=== PATIENT | female | born 1955 | race Caucasian/White ===

== ENCOUNTER 2024-11-19 18:44 | Emergency (ER) | payer OTHER ==
--- NOTE | 2024-11-19 20:23 | RAD REPORT ---
EXAM: Chest Single View HISTORY: COUGH COMPARISON: None. FINDINGS: LUNGS/PLEURA: Likely emphysema. Linear scarring at the right lung base. Interstitial thickening but w ithout focal consolidation or edema. MEDIASTINUM: The mediastinal silhouette is within normal limits. CARDIAC: The cardiac silhouette is within normal limits. UPPER ABDOMEN: No significant abnormality. BONES: No acute abnormality. LINES/TUBES/OTHER: N/A IMPRESSION: No evidence of acute cardiopulmonary disease.
[2024-11-19 21:00] LABS: Absolute Monocytes 1.4 K/uL (0.1-1.3); Absolute Neutrophil 13.8 K/uL (1.8-8.0); Basophils % 0.3 % (0-1.3); Eosinophils % 0.1 % (0-4.4); Hemoglobin 12.2 g/dL (12.0-15.0); Lymphocytes % 6.2 % (15.3-44.8); MCH 33.4 pg (27.0-35.0); MCV 98.3 fL (80-100); MPV 9.4 fL (7.6-11.3); Monocytes % 8.7 % (3.3-12.3); Neutrophils % 84.7 % (41.7-73.7); Platelets 431 thou/uL (152-406); RBC Red Blood Cell Count 3.66 M/uL (3.86-4.86); Red Cell Distribution Width 14.4 % (12.1-15.2)
[2024-11-19 21:10] LABS: Albumin 2.7 g/dL (3.4-5.0); Albumin/Globulin Ratio 0.6 (1.1-1.8); Anion Gap 8.2 mEq/L (5.0-15.0); Bilirubin Total 1.4 mg/dL (0.2-1.0); Globulin 4.3 g/dL (2.3-3.5); Potassium 3.2 mEq/L (3.5-5.1)
--- NOTE | 2024-11-19 21:51 | RAD REPORT ---
EXAMINATION: CT ABDOMEN AND PELVIS WITH CONTRAST CLINICAL INDICATION: Female, 69 years old.ABD PAIN TECHNIQUE: CT abdomen and pelvis was performed, after the administration of IV contrast, as per [facility] protocol. Axial, sagittal and coronal reconstructions were obtained. One or more of the following dose reduction techniques were used: Automated exposure control, adjustment of the mA and/o r kV according to patient size, and/or iterative reconstruction. Unless otherwise specified, incidental findings do not require dedicated imaging follow-up. [id number]. COMPARISON: No prior exam. FINDINGS: LOWER CHEST: Micronodularity in the right lower lobe.No significant pericardial effusion. Mild circum ferential thickening of the distal esophagus which could reflect esophagitis. UPPER GI: Gastric stimulator leads. LIVER: Hepatic steatosis, but otherwise unremarkable. GALLBLADDER/BILE DUCTS: Extrahepatic biliary duct dilatation?with duct measuring 8 mm. There is also mild ductal enhancement. PANCREAS: Atrophy, but otherwise unremarkable. SPLEEN: Unremarkable. ADRENALS: No adrenal masses. KIDNEYS AND URETERS: No hydronephrosis.No suspicious renal mass. Nonobstructing stone in the lower po le right kidney. ABDOMINAL AORTA AND OTHER VESSELS: Moderate atherosclerotic changes without aortic aneurysm. PERITONEUM: Trace pelvic free fluid. LYMPH NODES: No pathologic lymphadenopathy. ABDOMINAL WALL: Unremarkable SMALL BOWEL/COLON: Small bowel has normal course and caliber. No colonic wall thickening or pericolon ic inflammatory changes. URINARY BLADDER: Underdistended but grossly unremarkable. REPRODUCTIVE ORGANS: No pathologic process. MUSCULOSKELETAL: No acute or suspicious osseous abnormality. ADDITIONAL FINDINGS: None. IMPRESSION: 1. Extra hepatic biliary duct dilatation with mild ductal enhancement. Correlate with LFTs. If abnorm al, could consider further evaluation with MRCP to exclude choledocholithiasis. 2. Mild micronodularity in the right lower lobe likely reflecting mild infection.
[2024-11-19] MEDS ORDERED: ONDANSETRON 4 MG/2 ML VIAL ONE (22:02)
[2024-11-19] MEDS ORDERED: NA CHLORIDE 0.9% 1,000 ML ONE (22:02)
[2024-11-19] MEDS ORDERED: METHYLPREDNISOLONE 125 MG INJ ONE (22:02)
[2024-11-19 23:13] LABS: SARS-CoV-2 Antigen CONTROL BLUE LINE VIS/BG OK; SARS-CoV-2 Antigen Rapid Res Negative (Negative)
[2024-11-19 23:57] LABS: Specific Gravity > 1.030 (1.005-1.030); Sqamous Epithelial <5 /HPF (None Seen); Urine Bacteria None Seen /HPF (<20); Urine Bilirubin NEGATIVE (Negative); Urine Blood Negative (Negative); Urine Clarity Clear (Clear); Urine Color Yellow (Yellow); Urine Culture Reflex Order NOT NEEDED; Urine Glucose NEGATIVE (Negative); Urine Ketones 1+ (Negative); Urine Microscopic Reflex YN ORDER UMIC; Urine Nitrite NEGATIVE (Negative); Urine Protein 1+ (Negative); Urine RBC <5 /HPF (None Seen); Urine Urobilinogen 2+ (Normal); Urine WBC <5 /HPF (<5); Urine pH 6.5 (5.0-7.0)
--- NOTE | 2024-11-20 00:48 | ER ---
Nurse's Notes [facility] Name: Iqra Dhaliwal Age: 69 yrs Sex: Female : 1955 Arrival Date: 11/19/2024 Time: 18:44 Bed 20 Private MD: Diagnosis: Calculus of gallbladder without cholecystitis with obstruction;Acute choledocholithiasis with acute transaminitis Presentation: 11/19 19:07 Chief complaint: Productive cough with brown sputum, palpitations and generalized hb weakness x 1 week. 19:08 Coronavirus screen: At this time, the client does not indicate any symptoms associated hb with coronavirus-19. Ebola Screen: No symptoms or risks identified at this time. Initial Sepsis Screen: Does the patient meet any 2 criteria? No. Patient's initial sepsis screen is negative. Does the patient have a suspected source of infection? No. Patient's initial sepsis screen is negative. Risk Assessment: Do you want to hurt yourself or someone else? Patient reports no desire to harm self or others. Onset of symptoms was November 05, 2023. 19:08 Method Of Arrival: Wheelchair hb 19:08 Acuity: RASHI 3 hb Historical: - Allergies: 19:08 No Known Allergies; hb - PMHx: 19:08 Gastroparesis; Hypertension; hb - Immunization history:: Adult Immunizations up to date. - Infectious Disease History:: Denies. - Social history:: Smoking status: Patient reports the use of cigarette tobacco products, smokes one pack cigarettes per day. Screenin:30 [facility] ED Fall Risk Assessment (Adult) History of falling in the last 3 months, kj2 including since admission No falls in past 3 months (0 pts) Confusion or Disorientation No (0 pts) Intoxicated or Sedated No (0 pts) Impaired Gait No (0 pts) Mobility Assist Device Used No (0 pt) Altered Elimination No (0 pt) Score/Fall Risk Level 0 - 2 = Low Risk Maintained a safe environment, Hourly rounding (assess needs \T\ fall precautionary measures) done. Abuse screen: Denies threats or abuse. Denies injuries from another. Nutritional screening: No deficits noted. Tuberculosis screening: No symptoms or risk factors identified. Assessment: 21:30 General: Appears in no apparent distress. Behavior is calm, cooperative. Pain: Denies kj2 pain. 21:30 Neuro: Level of Consciousness is awake, alert, obeys commands, Oriented to person, kj2 place, time, situation. Cardiovascular: Patient's skin is warm and dry. Respiratory: Airway Respiratory effort is unlabored. GI: Abdomen is. : No signs and/or symptoms were reported regarding the genitourinary system. 22:33 Reassessment: Patient appears in no apparent distress at this time. Patient and/or kj2 family updated on plan of care and expected duration. Pain level reassessed. Patient is alert, oriented x 3, equal unlabored respirations, skin warm/dry/pink. 23:40 Reassessment: Patient appears in no apparent distress at this time. Patient and/or kj2 family updated on plan of care and expected duration. Pain level reassessed. Patient is alert, oriented x 3, equal unlabored respirations, skin warm/dry/pink. 11/20 01:30 Reassessment: No changes from previously documented assessment. Patient and/or family rg5 updated on plan of care and expected duration. Pain level reassessed. Patient is alert, oriented x 3, equal unlabored respirations, skin warm/dry/pink. 02:15 Reassessment: No changes from previously documented assessment. Patient and/or family rg5 updated on plan of care and expected duration. Pain level reassessed. 03:30 Reassessment: No changes from previously documented assessment. Patient and/or family rg5 updated on plan of care and expected duration. Pain level reassessed. Patient is alert, oriented x 3, equal unlabored respirations, skin warm/dry/pink. Vital Signs: 11/19 19:07 BP 112 / 84; Pulse 88; Resp 18; Temp 98.4; Pulse Ox 93% on R/A; Weight 77.11 kg; Height hb 5 ft. 4 in. ; Pain 0/10; 22:37 BP 129 / 94; Pulse 78; Resp 20; Pulse Ox 100% ; kj2 23:41 BP 114 / 86; Pulse 85; Resp 20; Pulse Ox 97% on R/A; kj2 11/20 02:00 BP 128 / 86; Pulse 81; Resp 18; Pulse Ox 96% on R/A; rg5 03:00 BP 123 / 83; Pulse 95; Resp 18; Pulse Ox 94% on R/A; rg5 11/19 19:07 Body Mass Index 29.18 (77.11 kg, 162.56 cm) hb 11/19 19:07 Pain Scale: Adult hb ED Course: 11/19 18:46 Patient arrived in ED. im 19:00 Harsh Ward MD is Attending Physician. ec2 19:08 Triage completed. hb 19:09 Arm band placed on. hb 19:42 Radiology exam delayed due to lab results not completed at this time. (BUN/Creatinine) nj IV insertion attempt and/or patient not having appropriate IV at this time. 19:54 CXR XRAY In Process Unspecified. EDMS 20:10 Attending Physician role handed off by Harsh Ward MD ec2 20:10 Fortunato Evans MD is Attending Physician. ec2 20:49 CT Abd/Pelvis - IV Contrast Only In Process Unspecified. EDMS 21:30 Patient has correct armband on for positive identification. Bed in low position. Call kj2 light in reach. Adult w/ patient. Provided Education on: call light. 21:30 Inserted saline lock: 22 gauge in right antecubital area, using aseptic technique. kj2 Blood collected. Flushed with 10 mL NS. 21:43 Marry Bello, RN is Primary Nurse. kj2 22:18 SARS RAPID Sent. kj2 22:18 Influenza Screen (a \T\ B) Sent. kj2 22:35 No provider procedures requiring assistance completed. kj2 23:40 Assisted to bathroom. kj2 11/20 00:46 Initiated transfer with Charlene at [facility]. rv1 01:28 US Abdomen Limited In Process Unspecified. EDMS 01:[address] Doc [address] Doc with Dr. Booth at [facility]. rv1 01:[address] Garrido to [facility] RM 2407. Report #[phone]. rv1 02:30 Awaiting nurse to nurse report for transfer. rv1 03:24 Called Nasra at EMS, Gave 15 min ETA. rv1 03:44 Patient transferred, IV remains in place. intact, No redness/swelling at site. rg5 Administered Medications: 11/19 22:11 Drug: Ondansetron IVP 4 mg IVP once; over 2 minutes Route: IVP; Site: right antecubital;kj2 23:42 Follow up: Response: No adverse reaction kj2 22:11 Drug: NS 0.9% IV 1000 ml IV at 1 bolus Per protocol; to be given as a bolus over 60 kj2 minutes Route: IV; Rate: 1 bolus; Site: right antecubital; 11/20 00:00 Follow up: IV Status: Completed infusion; IV Intake: 1000ml rg5 11/19 22:11 Drug: MethylPrednisoLONE IVP 125 mg IVP once Route: IVP; Site: right antecubital; kj2 23:42 Follow up: Response: No adverse reaction kj2 11/20 01:07 Drug: Ondansetron IVP 4 mg IVP once; over 2 minutes Route: IVP; Site: right antecubital;rg5 02:40 Follow up: Response: No adverse reaction rg5 01:07 Drug: NS 0.9% IV 1000 ml IV at 125 ml/hr Per protocol; to be given as a bolus over 60 rg5 minutes Route: IV; Rate: 125 ml/hr; Site: right antecubital; 03:45 Follow up: IV Status: Infusion continued upon transfer rg5 01:08 Drug: Piperacillin-Tazobactam IVPB 3.375 grams IVPB once over 60 mins; (mix in NS 100 rg5 mL) Route: IVPB; Infused Over: 60 mins; Site: right antecubital; 02:40 Follow up: IV Status: Completed infusion; IV Intake: 100ml rg5 01:08 Drug: morphine IVP or IV 4 mg IVP once over 4 mins Route: IVP; Infused Over: 4 mins; rg5 Site: right antecubital; 02:40 Follow up: Response: No adverse reaction; Pain is decreased rg5 02:31 Drug: Potassium Chloride IV 20 mEq IV at calculated rate once; administer over 1-2 rg5 hours Route: IV; Rate: calculated rate; Site: right antecubital; 03:44 Follow up: IV Status: Infusion continued upon transfer rg5 Medication: 11/19 22:35 VIS not applicable for this client. kj2 Intake: 11/20 00:00 IV: 1000ml; Total: 1000ml. rg5 02:40 IV: 100ml; Total: 1100ml. rg5 Outcome: 00:48 ER care complete, transfer ordered by MD. santoro 03:44 Transferred by ground EMS to [facility], [facility] [place], rg5 03:44 Condition: stable 03:44 Instructed on the need for transfer, 03:45 Patient left the ED. rg5 Signatures: Dispatcher [employer] Jeannette Serrano, SELENE RN hb Ovidio Bello Rebecca rv1 Fortunato Evans MD MD sp4 Alyssia Coffey Edwin, MD MD ec2 Jose Daniel Delong RN RN rg5 Marry Bello RN RN kj2 Corrections: (The following items were deleted from the chart) 11/19 19:08 19:07 Chief complaint: Palpitations and generalized weakness x 1 week. hb hb 19: 19:07 Temp 98.4F; hb hb 19:09 19:08 Social history: Smoking status: Patient denies any tobacco usage or history of. hbhb 19:10 19:07 BP 112 / 84; Pulse 88bpm; Resp 18bpm; Pulse Ox 93% RA; Temp 98.4F; hb hb
--- NOTE | 2024-11-20 00:48 | EDPHYS ---
Physician Documentation [facility] Name: Iqra Dhaliwal Age: 69 yrs Sex: Female : 1955 Arrival Date: 11/19/2024 Time: 18:44 Bed 20 Private MD: ED Physician Fortunato Evans HPI: 11/19 19:14 This 69 yrs old Female presents to ER via Wheelchair with complaints of ec2 General Weakness. 19:15 Patient arrives today for evaluation of generalized weakness and feeling unwell. ec2 Patient been having cough and congestion. Patient's been having issues with urinary frequency as well. Patient reports he is having decreased p.o. intake as well as nausea and vomiting which is typical for her gastroparesis.. Historical: - Allergies: 19:08 No Known Allergies; hb - PMHx: 19:08 Gastroparesis; Hypertension; hb - Immunization history:: Adult Immunizations up to date. - Infectious Disease History:: Denies. - Social history:: Smoking status: Patient reports the use of cigarette tobacco products, smokes one pack cigarettes per day. ROS: 19:15 Constitutional: as per hpi ec2 Exam: 19:15 Constitutional: GEN: NAD Head: atraumatic Eyes: EOMI Ears: External ears are ec2 normal. CV: regular rate LUNGS: no respiratory distress ABD: non-distended, soft, generally tender SKIN: no evidence of rashes MSK: no evidence of trauma Vital Signs: 19:07 BP 112 / 84; Pulse 88; Resp 18; Temp 98.4; Pulse Ox 93% on R/A; Weight 77.11 kg; Height hb 5 ft. 4 in. ; Pain 0/10; 22:37 BP 129 / 94; Pulse 78; Resp 20; Pulse Ox 100% ; kj2 23:41 BP 114 / 86; Pulse 85; Resp 20; Pulse Ox 97% on R/A; kj2 04 02:00 BP 128 / 86; Pulse 81; Resp 18; Pulse Ox 96% on R/A; rg5 03:00 BP 123 / 83; Pulse 95; Resp 18; Pulse Ox 94% on R/A; rg5 11/19 19:07 Body Mass Index 29.18 (77.11 kg, 162.56 cm) hb 11/19 19:07 Pain Scale: Adult hb MDM: 11/19 19:03 Medical Screening Exam initiated ec2 19:15 Data reviewed: vital signs, nurses notes. ED course: Patient arrives today for ec2 abdominal pain along with cough and cold symptoms as well as urinary complaints. Will obtain lab work, urine studies, chest x-ray, CT abdomen pelvis.. 20:10 ED course: Patient signed out pending lab work and imaging.. ec2 11/20 00:40 ED course: EXAMINATION: CTABDOMEN AND PELVIS WITH CONTRAST CLINICAL INDICATION: Female, sp4 69 years old.ABD PAIN TECHNIQUE: CT abdomen and pelvis was performed, after the administration of IV contrast, as per department protocol. Axial, sagittal and coronal reconstructions were obtained. One or more of the following dose reduction techniques were used: Automated exposure control, adjustment of the mA and/or kV according to patient size, and/or iterative reconstruction. Unless otherwise specified, incidental findings do not require dedicated imaging follow-up. [id number]. COMPARISON: No prior exam. FINDINGS: LOWER CHEST: Micronodularity in the right lower lobe.No significant pericardial effusion. Mild circumferential thickening of the distal esophagus which could reflect esophagitis. UPPER GI: Gastric stimulator leads. LIVER: Hepatic steatosis, but otherwise unremarkable. GALLBLADDER/BILE DUCTS: Extrahepatic biliary duct dilatation?with duct measuring 8 mm. There is also mild ductal enhancement. PANCREAS: Atrophy, but otherwise unremarkable. SPLEEN: Unremarkable. ADRENALS: No adrenal masses. KIDNEYS AND URETERS: No hydronephrosis.No suspicious renal mass. Nonobstructing stone in the lower pole right kidney. ABDOMINAL AORTA AND OTHER VESSELS: Moderate atherosclerotic changes without aortic aneurysm. PERITONEUM: Trace pelvic free fluid. LYMPH NODES: No pathologic lymphadenopathy. ABDOMINAL WALL: Unremarkable SMALL BOWEL/COLON: Small bowel has normal course and caliber. No colonic wall thickening or pericolonic inflammatory changes. URINARYBLADDER: Underdistended but grossly unremarkable. REPRODUCTIVE ORGANS: No pathologic process. MUSCULOSKELETAL: No acute or suspicious osseous abnormality. ADDITIONAL FINDINGS: None. IMPRESSION: 1. Extra hepatic biliary duct dilatation with mild ductal enhancement. Correlate with LFTs. If abnormal, could consider further evaluation with MRCP to exclude choledocholithiasis. 2. Mild micronodularity in the right lower lobe likely reflecting mild infection. . 00:44 Differential Diagnosis: hypoglycemia, meningitis, overdose, pneumonia, seizure, sepsis. sp4 Consideration of Admission/Observation Escalation of care including admission/observation considered. ED course: Patient is appropriate for transfer for GI evaluation MRCP or ERCP.. 01:55 Management of patient was discussed with the following: [facility] Department Supervisor: Hospitalist . 4 11/19 19:13 Order name: CBC with Diff; Complete Time: 00:12 ec2 11/19 19:13 Order name: CMP; Complete Time: 00:12 ec2 11/19 19:13 Order name: Lipase; Complete Time: 00:12 ec2 11/19 19:13 Order name: Urinalysis w/ reflexes; Complete Time: 00:12 ec2 11/19 19:13 Order name: Influenza Screen (a \T\ B); Complete Time: 00:12 ec2 11/19 19:13 Order name: SARS RAPID; Complete Time: 00:12 ec2 11/19 19:13 Order name: CT Abd/Pelvis - IV Contrast Only; Complete Time: 00:12 ec2 11/19 19:13 Order name: CXR XRAY; Complete Time: 00:12 ec2 11/20 00:41 Order name: US Abdomen Limited sp4 11/19 19:13 Order name: IV Saline Lock; Complete Time: 22:18 ec2 11/19 19:13 Order name: Labs collected and sent; Complete Time: 22:18 ec2 Administered Medications: 11/19 22:11 Drug: Ondansetron IVP 4 mg IVP once; over 2 minutes Route: IVP; Site: right antecubital;kj2 23:42 Follow up: Response: No adverse reaction kj2 22:11 Drug: NS 0.9% IV 1000 ml IV at 1 bolus Per protocol; to be given as a bolus over 60 kj2 minutes Route: IV; Rate: 1 bolus; Site: right antecubital; 11/20 00:00 Follow up: IV Status: Completed infusion; IV Intake: 1000ml 5 11/19 22:11 Drug: MethylPrednisoLONE IVP 125 mg IVP once Route: IVP; Site: right antecubital; kj2 23:42 Follow up: Response: No adverse reaction kj2 11/20 01:07 Drug: Ondansetron IVP 4 mg IVP once; over 2 minutes Route: IVP; Site: right antecubital;rg5 02:40 Follow up: Response: No adverse reaction rg5 01:07 Drug: NS 0.9% IV 1000 ml IV at 125 ml/hr Per protocol; to be given as a bolus over 60 rg5 minutes Route: IV; Rate: 125 ml/hr; Site: right antecubital; 03:45 Follow up: IV Status: Infusion continued upon transfer rg5 01:08 Drug: Piperacillin-Tazobactam IVPB 3.375 grams IVPB once over 60 mins; (mix in NS 100 rg5 mL) Route: IVPB; Infused Over: 60 mins; Site: right antecubital; 02:40 Follow up: IV Status: Completed infusion; IV Intake: 100ml rg5 01:08 Drug: morphine IVP or IV 4 mg IVP once over 4 mins Route: IVP; Infused Over: 4 mins; rg5 Site: right antecubital; 02:40 Follow up: Response: No adverse reaction; Pain is decreased rg5 02:31 Drug: Potassium Chloride IV 20 mEq IV at calculated rate once; administer over 1-2 rg5 hours Route: IV; Rate: calculated rate; Site: right antecubital; 03:44 Follow up: IV Status: Infusion continued upon transfer rg5 Disposition Summary: 11/20/24 00:48 Transfer Ordered Notes: Transfer Location: [facility] sp4 Reason: Higher level of care sp4 Condition: Stable sp4 Problem: new sp4 Symptoms: have improved sp4 Accepting Physician: [facility]'s attending (11/20/24 03:45) rg5 Diagnosis - Calculus of gallbladder without cholecystitis with obstruction sp4 - Acute choledocholithiasis with acute transaminitis sp4 Forms: - Medication Reconciliation Form sp4 - SBAR form sp4 Signatures: Dispatcher [employer] Jeannette Serrano RN RN hb Potepalov, Sergey, MD MD sp4 Harsh Ward MD MD ec2 Jose Daniel Delong RN RN rg5 Marry Bello RN RN kj2 Corrections: (The following items were deleted from the chart) 11/19 19:09 19:08 Social history: Smoking status: Patient denies any tobacco usage or history of. [facility] 19:14 19:14 CBC+H.LAB.BRZ ordered. EDMS EDMS 19:14 19:14 COMPREHENSIVE METABOLIC PANEL+C.LAB.BRZ ordered. EDMS EDMS 19:14 19:14 LIPASE+C.LAB.BRZ ordered. EDMS EDMS 19:14 19:14 Urinalysis+U.LAB.BRZ ordered. EDMS EDMS 19:14 19:14 Influenza Screen (A \T\ B)+BA.LAB.BRZ ordered. EDMS EDMS 19:14 19:14 SARS-COV-2 Antigen Rapid+I.LAB.BRZ ordered. EDMS EDMS 11/20 03:45 00:48 [facility]'s attending sp4 rg5
[2024-11-20] MEDS ORDERED: ONDANSETRON 4 MG/2 ML VIAL ONE (00:55)
[2024-11-20] MEDS ORDERED: MORPHINE 4 MG/ML SYR ONE (00:56)
[2024-11-20] MEDS ORDERED: NA CHLORIDE 0.9% 1,000 ML ONE (00:56)
[2024-11-20] MEDS ORDERED: NA CHLORIDE 0.9% 100 ML ONE (00:57)
[2024-11-20] MEDS ORDERED: PIPERACIL/TAZO 3.375 GM VIAL IV ONE (00:57)
[2024-11-20] MEDS ORDERED: KCL 20 MEQ/100 mL IVPB 100 ML IV ONE (02:18)
[2024-11-20 03:53] VITALS: TEMP 98.4
[2024-11-20 03:57] VITALS: BP 123/83; O2SAT 94
--- NOTE | 2024-11-20 04:00 | RAD REPORT ---
PROCEDURE: US ABDOMEN LIMITED INDICATION: Abdominal pain. COMPARISON: Prior images have not available for comparison at time of interpretation. TECHNIQUE: Grayscale, color and spectral Doppler ultrasound of the gallbladder was performed. FINDINGS: 8.7 mm gallstone is seen in gallbladder fundus. Small amount of intraluminal sludge is also seen. Gal lbladder wall is mildly thickened, measuring up to 3.9 mm in thickness. There is trace pericholecystic fluid. Common bile duct is limitedly visualized. Visualized portion is normal in caliber, measuring 4 mm in diameter. No free fluid or collection in visualized right upper abdomen. IMPRESSION: 1. Cholelithiasis. 2. Mild gallbladder wall thickening and trace pericholecystic fluid. Correlation with clinical symp toms to exclude acute cholecystitis. Nuclear medicine HIDA scan can be considered for further evaluation. Electronically signed by: Ginger Duffy MD 11/20/2024 03:55 AM [facility] Due to temporary technical issues with the PACS/[employer] reporting system, reports are being signed by the in-house radiologist without review as a courtesy to ensure prompt reporting the interpreting radiologist is fully responsible for the content of the report. Transcribed Date/Time: 11/20/2024 4:00 AM
== END 2024-11-20 03:45 | disposition short-term general hospital (02) ==
LOC: ER 18:44
DX: K80.21 Calculus of gallbladder without cholecystitis with obstruction (principal); K80.50 Calculus of bile duct without cholangitis or cholecystitis without obstruction; R74.01 Elevation of levels of liver transaminase levels; F17.210 Nicotine dependence, cigarettes, uncomplicated; Z11.52 Encounter for screening for COVID-19
CPT/HCPCS: 85025; 81001; 36415; 82565; 83690; 80053; 87804 ×2; 74177; 71045; 76705; 87811; Q9967; J3480; J2543; J2919; J2405 ×2; J7030 ×2